=== PATIENT | female | born 1935 | race Caucasian/White ===

== ENCOUNTER 2017-01-20 11:03 | Emergency (ER) | payer OTHER ==
[2017-01-20 15:09] VITALS: BP 110/88
== END 2017-01-20 15:09 | disposition home or self-care (01) ==
LOC: ED 11:03
DX: S01.111A Laceration without foreign body of right eyelid and periocular area, initial encounter (principal); G30.9 Alzheimer's disease, unspecified; F02.80 Dementia in other diseases classified elsewhere, unspecified severity, without behavioral disturbance, psychotic disturbance, mood disturbance, and anxiety; I10 Essential (primary) hypertension; W17.89XA Other fall from one level to another, initial encounter; Y93.89 Activity, other specified; Y99.8 Other external cause status; Y92.89 Other specified places as the place of occurrence of the external cause

== ENCOUNTER 2017-05-23 17:22 | Inpatient (IN) | payer OTHER ==
[~2017-05-23] VITALS: Ht 172.7 cm; Wt 46.0 kg
[2017-05-23 18:24] LABS: PLATELET COUNT 278 x10^3mcL (130-400)
[2017-05-23 18:34] LABS: UA SPECIFIC GRAVITY 1.025 (1.005-1.035); microscopic required? YES; urine erythrocyte NEGATIVE (NEGATIVE)
[2017-05-23 18:34] LABS: ALBUMIN 3.5 g/dL (3.4-5.0); ALKALINE PHOSPHATASE 69 U/L (46-116); ALT/SGPT 21 U/L (14-59); AST/SGOT 21 U/L (15-37); BILIRUBIN TOTAL 0.57 mg/dL (0.20-1.00); CALCIUM 8.9 mg/dL (8.5-10.1); CARBON DIOXIDE 22.9 mmol/L (21-32); CHLORIDE SERUM 118 mmol/L (98-107); CREATININE SERUM 1.9 mg/dL (0.6-1.0); GLUCOSE SERUM 312 mg/dL (74-106); LIPASE 106 IU/L (73-393); POTASSIUM SERUM 3.3 mmol/L (3.5-5.1)
[2017-05-23 18:36] LABS: SODIUM SERUM 159 mmol/L (136-145)
[2017-05-23] MEDS ORDERED: APAP325 MG PO (18:43)
[2017-05-23] MEDS ORDERED: MULTI-VITAMINS1 TAB PO (18:44)
[2017-05-23] MEDS ORDERED: OMEPRAZOLE40 M1 PO (18:44)
[2017-05-23] MEDS ORDERED: ECO325 PO (18:44)
[2017-05-23] MEDS ORDERED: METOPROLOL TART25 M1 PO (18:44)
[2017-05-23] MEDS ORDERED: ATIVAN1 MG PO (18:44)
[2017-05-23] MEDS ORDERED: SEROQUEL25 MG PO (18:45)
[2017-05-23] MEDS ORDERED: CONSTULOSE10 GM/151 PO (18:45)
[2017-05-23] MEDS ORDERED: SENNA8.6 M2 PO (18:45)
[2017-05-23] MEDS ORDERED: COLACE LIQUID PO (18:46)
[2017-05-23] MEDS ORDERED: EFUDEX5% TOP (18:47)
[2017-05-23] MEDS ORDERED: MEDI-FIRST NON325 MG PO (18:47)
[2017-05-23] MEDS ORDERED: CALMOSEPTINE1 OIN TOP (18:47)
[2017-05-23] MEDS ORDERED: LOPERAMIDE HCL2 MG PO (18:48)
[2017-05-23 19:11] LABS: RED CELL DISTRIBUTION WIDTH 16.8 % (11.5-14.5)
[2017-05-23 19:42] LABS: BAND NEUTROPHIL 4 % (0-10); BASOPHIL 0 % (0-2); MONOCYTE 1 % (0-7); SEGMENTED NEUTROPHILS 4 % (37-75)
[2017-05-23 19:43] LABS: rbc morphology (normal/abnorm) ABNORMAL (NORMAL)
[2017-05-23 19:44] LABS: PATH REVIEW for HEMA YES
[2017-05-23 21:39] LABS: MAGNESIUM 2.6 mg/dL (1.8-2.4); PHOSPHOROUS 4.3 mg/dL (2.5-4.9)
[2017-05-23 21:42] LABS: CHOLESTEROL/HDL RATIO 5.1; T3 TOTAL 0.49 ng/mL
[2017-05-23 21:45] LABS: FREE T4 1.53 ng/dL (0.76-1.46); FREE THYROXINE INDEX 4.2 ug/dL (1.4-4.5); T4(THYROXINE) 10.3 ug/dL (4.7-13.3)
[2017-05-24] VITALS (10 sets, daily range): BP systolic 85–101; BP diastolic 41–59; Ht 172.7 cm; Wt 46.0 kg
[2017-05-24 01:38] LABS: ALKALINE PHOSPHATASE 38 U/L (46-116); ALT/SGPT 13 U/L (14-59); AST/SGOT 38 U/L (15-37); BILIRUBIN TOTAL 0.38 mg/dL (0.20-1.00); CALCIUM 7.2 mg/dL (8.5-10.1); CARBON DIOXIDE 22.7 mmol/L (21-32); CHLORIDE SERUM 123 mmol/L (98-107); CREATININE SERUM 1.4 mg/dL (0.6-1.0); GLUCOSE SERUM 186 mg/dL (74-106); POTASSIUM SERUM 3.6 mmol/L (3.5-5.1); SODIUM SERUM 157 mmol/L (136-145)
[2017-05-24 01:39] LABS: ALBUMIN 1.9 g/dL (3.4-5.0)
[2017-05-24 02:17] LABS: PLATELET COUNT 176 x10^3mcL (130-400)
[2017-05-24 02:25] LABS: RED CELL DISTRIBUTION WIDTH 16.9 % (11.5-14.5)
[2017-05-24 02:45] LABS: BAND NEUTROPHIL 26 % (0-10); METAMYELOCTE 10 % (0-2); MONOCYTE 2 % (0-7); SEGMENTED NEUTROPHILS 8 % (37-75)
[2017-05-24 02:59] LABS: PLATELET MORPHOLOGY FEW LARGE PL.; rbc morphology (normal/abnorm) ABNORMAL (NORMAL)
[2017-05-24 03:00] LABS: PATH REVIEW for HEMA YES
== END 2017-05-24 15:06 | disposition expired | DRG 853 ==
LOC: ED 17:22 → DU 19:21 → IC 19:21
PROVIDERS: Emergency Medicine; Surgery; ADMIT Family Medicine
PROC: 03HC33Z Insertion of Infusion Device into Left Radial Artery, Percutaneous Approach (ICD-10-PCS; 2017-05-23)
PROC: 05HM33Z Insertion of Infusion Device into Right Internal Jugular Vein, Percutaneous Approach (ICD-10-PCS; 2017-05-23)
PROC: B543ZZA Ultrasonography of Right Jugular Veins, Guidance (ICD-10-PCS; 2017-05-23)
PROC: 0D1B0Z4 Bypass Ileum to Cutaneous, Open Approach (ICD-10-PCS; principal; 2017-05-23 21:00)
DX: A41.9 Sepsis, unspecified organism (principal); K55.019 Acute (reversible) ischemia of small intestine, extent unspecified; N17.0 Acute kidney failure with tubular necrosis; K65.0 Generalized (acute) peritonitis; R65.21 Severe sepsis with septic shock; E43 Unspecified severe protein-calorie malnutrition; E87.0 Hyperosmolality and hypernatremia; C91.10 Chronic lymphocytic leukemia of B-cell type not having achieved remission; Z68.1 Body mass index [BMI] 19.9 or less, adult; E83.41 Hypermagnesemia; R73.03 Prediabetes; E78.1 Pure hyperglyceridemia; E87.6 Hypokalemia; D63.8 Anemia in other chronic diseases classified elsewhere; D64.9 Anemia, unspecified; G30.9 Alzheimer's disease, unspecified; F02.80 Dementia in other diseases classified elsewhere, unspecified severity, without behavioral disturbance, psychotic disturbance, mood disturbance, and anxiety; Z66 Do not resuscitate; Z51.5 Encounter for palliative care
CPT/HCPCS: 82962; 83880; 84439; 85060; A4628; C1751; J0330; J1644; J1956; J2060; J2270; J2543; J3010; J3490; J7030; J7040; J7120; Q0092